=== PATIENT | female | born 1965 | race Hispanic/Latino ===

== ENCOUNTER 2020-01-23 00:07 | Emergency (ER) | payer OTHER ==
[2020-01-23] MEDS ORDERED: NA CHLORIDE 0.9% 1,000 ML ONE (00:54)
[2020-01-23] MEDS ORDERED: CLINDAMYCIN 900MG/D5W 900 MG/50 ML IVPB IV ONE (00:54)
[2020-01-23] MEDS ORDERED: MORPHINE 4 MG/ML SYR ONE (00:54)
[2020-01-23] MEDS ORDERED: ONDANSETRON 4 MG/2 ML VIAL ONE (00:54)
[2020-01-23 00:58] LABS: Absolute Lymphocytes (CBC) 2.6 K/uL (0.7-4.9); Basophils % 0.5 % (0-1.3); Hematocrit 40.6 % (36.0-45.0); Lymphocytes % 20.9 % (15.3-44.8); MPV 8.6 fL (7.6-11.3)
[2020-01-23 01:17] LABS: Potassium 3.5 mmol/L (3.5-5.1)
[2020-01-23] MEDS ORDERED: MEPERIDINE HCL 50 MG/ML ONE (01:30)
--- NOTE | 2020-01-23 01:35 | EDPHYS ---
Physician Documentation [facility] Name: Bay Carbajal Age: 54 yrs Sex: Female : 1965 Arrival Date: 01/23/2020 Time: 00:10 Bed 7 Private MD: ED Physician Foreign Espinoza HPI: 01/22 00:37 This 54 yrs old Female presents to ER via Ambulatory with complaints of pkl Swollen Jaw. 00:37 The patient presents with swelling, gum. Onset: The symptoms/episode began/occurred 3 pkl day(s) ago. Patient said she developed swelling of her right jaw after bridge came out while eating. Seen by Dentist and prescribed Azithromycin without improvement. Has appointment with oral surgeon on 03/03/20.. MAGISTRATE JUDGE: 00:23 LMP N/A - Hysterectomy lp1 Historical: - Allergies: 00:22 No Known Allergies; lp1 - Home Meds: 00:22 None [Active]; lp1 - PMHx: 00:22 None; lp1 - PSHx: 00:22 wrist surgery; Cholecystectomy; Hysterectomy; lp1 - Immunization history:: Adult Immunizations up to date. - Social history:: Smoking status: Patient denies any tobacco usage or history of. ROS: 00:37 Eyes: Negative for injury, pain, redness, and discharge. pkl 00:37 ENT: Positive for dental pain. 00:37 Neck: Negative for stiffness. 00:37 Cardiovascular: Negative for chest pain. 00:37 Respiratory: Negative for cough, shortness of breath. 00:37 Abdomen/GI: Negative for abdominal pain, nausea, vomiting, and diarrhea. 00:37 Back: Negative for acute changes. 00:37 : Negative for urinary symptoms. 00:37 MS/extremity: Negative for acute changes. 00:37 Skin: Negative for rash. 00:37 Neuro: Negative for altered mental status. Exam: 00:37 Eyes: Pupils equal round and reactive to light, extra-ocular motions intact. Lids and pkl lashes normal. Conjunctiva and sclera are non-icteric and not injected. Cornea within normal limits. Periorbital areas with no swelling, redness, or edema. 00:37 Head/face: Noted is swelling, that is mild, of the right jaw. 00:37 ENT: Dental exam: gum swelling, that is mild, specifically in the right jaw. 00:37 Neck: Exam negative for nuchal rigidity. 00:37 Chest/axilla: Exam negative for acute changes. 00:37 Cardiovascular: Rate: tachycardic, actual rate is 102 bpm, Rhythm: regular. 00:37 Respiratory: the patient does not display signs of respiratory distress, Respirations: normal, Breath sounds: are clear throughout. 00:37 Abdomen/GI: Exam negative for acute changes. 00:37 Back: Exam negative for acute changes. 00:37 : Exam negative for acute changes. 00:37 Musculoskeletal/extremity: Exam is negative for acute changes. 00:37 Skin: Exam negative for rash. 00:37 Neuro: Orientation: is normal, Mentation: is normal, Cranial nerves: grossly normal, Motor: is normal. Vital Signs: 00:20 BP 172 / 92; Pulse 102; Resp 18; Temp 98(O); Pulse Ox 97% on R/A; Weight 72.57 kg (R); lp1 Height 5 ft. 0 in. (152.40 cm); Pain 10/10; 00:55 BP 141 / 86; Pulse 99; Resp 18; Pulse Ox 97% on R/A; mg2 00:20 Body Mass Index 31.25 (72.57 kg, 152.40 cm) lp1 MDM: 00:26 Patient medically screened. pkl 01:34 Data reviewed: vital signs, nurses notes, lab test result(s). pkl 06 00:36 Order name: CBC with Diff; Complete Time: 01:18 pkl 06 00:36 Order name: Chem 7; Complete Time: 01:18 pkl Administered Medications: 00:53 Drug: NS 0.9% 500 ml Route: IV; Rate: bolus; Site: right forearm; mg2 01:44 Follow up: Response: No adverse reaction; IV Status: Completed infusion; IV Intake: mg2 500ml 00:53 Drug: morphine 4 mg Route: IVP; Site: right forearm; mg2 01:44 Follow up: Response: No adverse reaction; Marked relief of symptoms; RASS: Alert and mg2 Calm (0) 00:53 Drug: Zofran (Ondansetron) 4 mg Route: IVP; Site: right forearm; mg2 01:44 Follow up: Response: No adverse reaction mg2 00:53 Drug: Clindamycin 900 mg Route: IVPB; Infused Over: 30 mins; Site: right forearm; mg2 01:44 Follow up: Response: No adverse reaction; IV Status: Completed infusion mg2 01:22 Drug: Demerol 50 mg Route: IVP; Site: right forearm; mg2 01:44 Follow up: Response: No adverse reaction; Marked relief of symptoms mg2 Disposition: 01/23/20 01:35 Discharged to Home. Impression: Dental abscess. Cellulitis right jaw. - Condition is Stable. - Prescriptions for Ultram 50 mg Oral Tablet - take 1 tablet by ORAL route every 8 hours As needed; 20 tablet. Clindamycin HCl 150 mg Oral Capsule - take 1 capsule by ORAL route every 6 hours for 7 days; 28 capsule. - Medication Reconciliation Form, Thank You Letter, Antibiotic Education, Prescription Opioid Use form. - Follow up: Private Physician; When: 2 - 3 days; Reason: Re-evaluation by your physician. - Problem is new. - Symptoms are unchanged. Signatures: Dispatcher [employer] EDMS Foreign Espinoza MD MD pkl Anna Culver RN RN lp1 Danielito Cee RN RN mg2 Corrections: (The following items were deleted from the chart) 01:45 01:35 01/23/2020 01:35 Discharged to Home. Impression: Dental abscess. Cellulitis right mg2 jaw. Condition is Stable. Forms are Medication Reconciliation Form, Thank You Letter, Antibiotic Education, Prescription Opioid Use. Follow up: Private Physician; When: 2 - 3 days; Reason: Re-evaluation by your physician. Problem is new. Symptoms are unchanged. pkl
--- NOTE | 2020-01-23 01:35 | ER ---
Nurse's Notes [facility] Name: Bay Carbajal Age: 54 yrs Sex: Female : 1965 Arrival Date: 01/23/2020 Time: 00:10 Bed 7 Private MD: Diagnosis: Dental abscess. Cellulitis right jaw Presentation: 01/22 00:20 Chief complaint: Patient states: Swelling to right lower jaw x 3 days after bridge came lp1 out while eating; Seen by Dentist 3 days ago and prescribed Azithromycin and finished prescription; States continued pain and swelling to site; Appt to see oral surgeon 03/03/20. Coronavirus screen: Proceed with normal triage. Ebola Screen: No symptoms or risks identified at this time. Initial Sepsis Screen: Does the patient meet any 2 criteria? No. Patient's initial sepsis screen is negative. Does the patient have a suspected source of infection? No. Patient's initial sepsis screen is negative. Risk Assessment: Do you want to hurt yourself or someone else? Patient reports no desire to harm self or others. Onset of symptoms was January 23, 2020. 00:20 Method Of Arrival: Ambulatory lp1 00:20 Acuity: BERT 3 lp1 SPORT INTERN: 00:23 LMP N/A - Hysterectomy lp1 Historical: - Allergies: 00:22 No Known Allergies; lp1 - Home Meds: 00:22 None [Active]; lp1 - PMHx: 00:22 None; lp1 - PSHx: 00:22 wrist surgery; Cholecystectomy; Hysterectomy; lp1 - Immunization history:: Adult Immunizations up to date. - Social history:: Smoking status: Patient denies any tobacco usage or history of. Screenin:23 Abuse screen: Denies threats or abuse. Denies injuries from another. Nutritional lp1 screening: No deficits noted. Tuberculosis screening: No symptoms or risk factors identified. Fall Risk None identified. Assessment: 00:54 General: Appears in no apparent distress. comfortable, Behavior is calm, cooperative. mg2 Pain: Complains of pain in tooth. Neuro: Level of Consciousness is awake, alert, obeys commands, Oriented to person, place, time, situation. Cardiovascular: Capillary refill < 3 seconds Patient's skin is warm and dry. Respiratory: Airway is patent Respiratory effort is even, unlabored, Respiratory pattern is regular, symmetrical. GI: No signs and/or symptoms were reported involving the gastrointestinal system. : No signs and/or symptoms were reported regarding the genitourinary system. EENT: Reports toothache. Derm: Skin is intact, is healthy with good turgor, Skin is pink, warm \T\ dry. normal. Musculoskeletal: Circulation, motion, and sensation intact. Capillary refill < 3 seconds. Vital Signs: 00:20 BP 172 / 92; Pulse 102; Resp 18; Temp 98(O); Pulse Ox 97% on R/A; Weight 72.57 kg (R); lp1 Height 5 ft. 0 in. (152.40 cm); Pain 10/10; 00:55 BP 141 / 86; Pulse 99; Resp 18; Pulse Ox 97% on R/A; mg2 00:20 Body Mass Index 31.25 (72.57 kg, 152.40 cm) lp1 ED Course: 00:10 Patient arrived in ED. cl3 00:19 Danielito Cee, LYDIA is Primary Nurse. mg2 00:22 Triage completed. lp1 00:22 Arm band placed on right wrist. lp1 00:26 Foreign Espinoza MD is Attending Physician. pkl 00:40 Inserted saline lock: 20 gauge in right forearm, using aseptic technique. Blood mg2 collected. 00:55 Patient has correct armband on for positive identification. Pulse ox on. NIBP on. mg2 00:55 No provider procedures requiring assistance completed. mg2 01:45 IV discontinued, intact, bleeding controlled, No redness/swelling at site. Pressure mg2 dressing applied. Administered Medications: 00:53 Drug: NS 0.9% 500 ml Route: IV; Rate: bolus; Site: right forearm; mg2 01:44 Follow up: Response: No adverse reaction; IV Status: Completed infusion; IV Intake: mg2 500ml 00:53 Drug: morphine 4 mg Route: IVP; Site: right forearm; mg2 01:44 Follow up: Response: No adverse reaction; Marked relief of symptoms; RASS: Alert and mg2 Calm (0) 00:53 Drug: Zofran (Ondansetron) 4 mg Route: IVP; Site: right forearm; mg2 01:44 Follow up: Response: No adverse reaction mg2 00:53 Drug: Clindamycin 900 mg Route: IVPB; Infused Over: 30 mins; Site: right forearm; mg2 01:44 Follow up: Response: No adverse reaction; IV Status: Completed infusion mg2 01:22 Drug: Demerol 50 mg Route: IVP; Site: right forearm; mg2 :44 Follow up: Response: No adverse reaction; Marked relief of symptoms mg2 Intake: :44 IV: 500ml; Total: 500ml. mg2 Outcome: 01:35 Discharge ordered by . [email or web address] 01:45 Discharged to home via wheelchair. mg2 01:45 Condition: stable 01:45 Discharge instructions given to patient, Instructed on discharge instructions, follow up and referral plans. medication usage, Demonstrated understanding of instructions, follow-up care, Prescriptions given X 2. 01:45 Patient left the ED. mg2 Signatures: Foreign Espinoza MD MD pkl Anna Culver RN RN lp1 Danielito Cee RN RN mg2 Josefa Estes cl3 Corrections: (The following items were deleted from the chart) 01:45 01:45 Discharge instructions given to patient, Instructed on discharge instructions, mg2 follow up and referral plans. medication usage, Demonstrated understanding of instructions, follow-up care, Prescriptions given X mg2
[2020-01-23 01:58] VITALS: TEMP 98; O2SAT 97
[2020-01-23 02:01] VITALS: BP 141/86
== END 2020-01-23 01:45 | disposition home or self-care (01) ==
LOC: ER 00:07
DX: L03.211 Cellulitis of face (principal)
CPT/HCPCS: 96365; 85025; 80048; 36415; 96375; 99284; J2175; J7030; J2405

== ENCOUNTER 2025-01-06 20:51 | Emergency (ER) | payer OTHER ==
--- OUTSIDE RECORDS SUMMARY | 2025-01-06 20:53 | XMS REPORT | Continuity of Care Document ---
Author Name Unknown Address [address] [place] [address] [address] [place] [address] [facility] [place] Address [address] [facility] [address] [place] [address] Care Team Providers Care General Manager Road Production Name Role Phone PCP, NO Primary Care Physician Unavailab le ELY LANDAVERDE Attending Clinician Unavailable Payers Payer Name Policy Type Policy Number Effective Date Expirati on Date Source [employer] [id number] 2017 00:00:00 Encounters Start Date/Time End Date/Time Encounter Type Admission Type Attending Clinicians Care Facility Care Department Encounter ID Source 2024-09-03 11:45:18 2024-09-03 11:45:18 Outpatient ELY LANDAVERDE [facility] [id number] [facility]
--- NOTE | 2025-01-06 22:55 | RAD REPORT ---
EXAM: Chest Single View HISTORY: 59 years Female PAIN COMPARISON: None. FINDINGS: LUNGS/PLEURA: The lungs are clear. No pleural effusions or pneumothorax. No pulmonary edema. CARDIAC/MEDIASTINUM: The cardiac silhouette is within normal limits. UPPER ABDOMEN: No significant abnormality. BONES: No acute abnormality. LINES/TUBES/OTHER: N/A IMPRESSION: No evidence of acute cardiopulmonary disease.
[2025-01-06] MEDS ORDERED: cloNIDine HCL 0.1 MG TAB ONE (23:08)
[2025-01-06 23:55] LABS: Absolute Lymphocytes (CBC) 2.8 K/uL (0.7-4.9); Absolute Monocytes 0.4 K/uL (0.1-1.3); Absolute Neutrophil 3.6 K/uL (1.8-8.0); Basophils % 0.5 % (0-1.3); Eosinophils % 0.5 % (0-4.4); Hematocrit 40.6 % (36.0-45.0); Hemoglobin 14.6 g/dL (12.0-15.0); Lymphocytes % 40.1 % (15.3-44.8); MCH 31.3 pg (27.0-35.0); MCHC 36.1 g/dL (32.0-36.0); MCV 86.9 fL (80-100); Monocytes % 5.9 % (3.3-12.3); Nucleated Red Blood Cells % 0.1 % (0-0); Platelets 265 thou/uL (152-406); RBC Red Blood Cell Count 4.67 M/uL (3.86-4.86); Red Cell Distribution Width 13.7 % (12.1-15.2)
[2025-01-06 23:56] LABS: Anion Gap 7.8 mEq/L (5.0-15.0); Magnesium 1.9 mg/dL (1.6-2.4); Potassium 2.8 mEq/L (3.5-5.1); Troponin High Sensitivity 5.3 pg/mL (<58.9)
--- NOTE | 2025-01-07 00:10 | EDPHYS ---
Physician Documentation [facility] Name: Bay Carbajal Age: 59 yrs Sex: Female : 1965 Arrival Date: 01/06/2025 Time: 20:51 Bed 5 Private MD: ED Physician Rohit Read HPI: 01/06 23:48 This 59 yrs old Female presents to ER via Ambulatory with complaints of High kb Blood Pressure. 23:48 Patient is a 59-year-old female who presents for high blood pressure. States her blood kb pressure has been high all day, 180/109 just prior to arrival. States she has been under more stress than normal and she believes that is the cause of her high blood pressure. States she takes hydrochlorothiazide for her blood pressure. States she can normally feel when its high she starts getting a headache that is what made her check her blood pressure today.. Historical: - Allergies: 21:35 No Known Allergies; al5 - PMHx: 21:35 Hypertensive disorder; al5 - PSHx: 21:35 Total abdominal hysterectomy; Cholecystectomy; al5 - Immunization history:: Adult Immunizations up to date. - Infectious Disease History:: Denies. - Social history:: Smoking status: Patient denies any tobacco usage or history of. ROS: 23:17 Constitutional: As per HPI kb Exam: 23:17 Constitutional: This is a well developed, well nourished patient who is awake, alert, kb and in no acute distress. Head/Face: Normocephalic, atraumatic. ENT: Moist Mucous membranes Cardiovascular: Regular rate Respiratory: Respirations even and unlabored. No increased work of breathing. Talking in full sentences Skin: Warm, dry with normal turgor. Normal color. MS/ Extremity: Pulses equal, no cyanosis. Neurovascular intact. Full, normal range of motion. Neuro: Awake and alert, GCS 15, oriented to person, place, time, and situation. 23:17 ECG was reviewed by the Attending Physician. Vital Signs: 21:34 BP 154 / 99; Pulse 87; Resp 18; Temp 97.9; Pulse Ox 98% on R/A; Weight 58.97 kg; Height al5 5 ft. 0 in. ; 23:03 BP 158 / 91; Pulse 84; Resp 18; Pulse Ox 99% on R/A; kd3 05/22 00:09 BP 116 / 90; Pulse 80; Resp 19; Pulse Ox 98% on R/A; kd3 01/06 21:34 Body Mass Index 25.39 (58.97 kg, 152.4 cm) al5 MDM: 01/06 21:03 Medical Screening Exam initiated 23:49 Differential diagnosis: hypertensive crisis, Malignant HTN. Data reviewed: vital signs, nurses notes. 01/07 00:07 I considered the following discharge prescriptions or medication management in the emergency department I discussed and recommended Over The Counter medications, discussed potassium supplement due to hypokalemia and use of HCTZ. . Counseling: I had a detailed discussion with the patient and/or guardian regarding the historical points, exam findings, and any diagnostic results supporting the discharge/admit diagnosis, lab results, radiology results, the need for outpatient follow up, a family practitioner, to return to the emergency department if symptoms worsen or persist or if there are any questions or concerns that arise at home. 01/06 21: Order name: Basic Metabolic Panel; Complete Time: 00:03 kb 01/06 Order name: CBC with Diff; Complete Time: 00:03 kb 01/06 Order name: Magnesium; Complete Time: 00:03 kb 01/0623 Order name: Troponin HS; Complete Time: 00:03 kb 01/06 Order name: XRAY Chest (1 view); Complete Time: 22:57 kb 01/06 Order name: Cardiac monitoring; Complete Time: 23:02 kb 01/06 Order name: EKG - Nurse/Tech; Complete Time: 23:02 kb 01/06 Order name: IV Saline Lock; Complete Time: 23:02 kb 01/06 Order name: Labs collected and sent; Complete Time: 23:02 kb 01/06 Order name: O2 Per Protocol; Complete Time: 23:03 kb 01/06 Order name: O2 Sat Monitoring; Complete Time: 23:03 kb EC/21 23: Rate is 80 beats/min. Rhythm is regular. QRS [place] is Normal. PA interval is normal at kb 128 msec. QRS interval is normal at 82 msec. QT interval is normal at 431 msec. Administered Medications: 23:10 Drug: cloNIDine PO 0.1 mg PO once Route: PO; kd3 01/07 00:19 Drug: Potassium PO Effervescent Tablet 50 mEq PO once; dissolve in 4 ounces of water or kd3 juice Route: PO; Disposition: 01:55 Co-signature as Attending Physician, Rohit Read MD I reviewed the patient's care rn provided by the Advanced Practice Provider and agree with the diagnosis and treatment plan. Disposition Summary: 01/07/25 00:09 Discharge Ordered Notes: Location: Home kb Condition: Stable kb Diagnosis - Essential (primary) hypertension kb - Hypokalemia kb Followup: kb - With: Emergency Department - When: As needed - Reason: Worsening of condition Followup: kb - With: Private Physician - When: 2 - 3 days - Reason: Recheck today's complaints, Continuance of care, Re-evaluation by your physician Discharge Instructions: - Discharge Summary Sheet kb - Hypertension, Adult, [id number] kb - Managing Your Hypertension kb Forms: - Medication Reconciliation Form kb - Antibiotic Education kb - Prescription Opioid Use kb - Patient Portal Instructions kb - Leadership Thank You Letter kb Signatures: Dispatcher [employer] EDMS Lizbeth Chino, COOLING SYSTEM OPERATOR-C COOLING SYSTEM OPERATOR-Ckb Rohit Read MD MD rn Doucette, Kyli, RN RN kd3 Ness Springer RN RN al5 Corrections: (The following items were deleted from the chart) 01/06 21:23 21:23 BASIC METABOLIC PANEL+C.LAB.BRZ ordered. EDMS EDMS 21:23 21:23 CBC+H.LAB.BRZ ordered. EDMS EDMS 21:23 21:23 MAGNESIUM+C.LAB.BRZ ordered. EDMS EDMS 21:23 21:23 Troponin High Sensitivity+C.LAB.BRZ ordered. EDMS EDMS 21:23 21:23 Chest Single View+RAD.RAD.BRZ ordered. EDMS EDMS
--- NOTE | 2025-01-07 00:10 | ER ---
Nurse's Notes [facility] Name: Bay Carbajal Age: 59 yrs Sex: Female : 1965 Arrival Date: 01/06/2025 Time: 20:51 Bed 5 Private MD: Diagnosis: Essential (primary) hypertension;Hypokalemia Presentation: 01/06 21:34 Chief complaint: Patient states: c/o high blood pressure, headache, R shoulder blade al5 pain, and nausea starting today. Coronavirus screen: At this time, the client does not indicate any symptoms associated with coronavirus-19. Ebola Screen: No symptoms or risks identified at this time. Initial Sepsis Screen: Does the patient meet any 2 criteria? No. Patient's initial sepsis screen is negative. Does the patient have a suspected source of infection? No. Patient's initial sepsis screen is negative. Risk Assessment: Do you want to hurt yourself or someone else? Patient reports no desire to harm self or others. Onset of symptoms was January 06, 2025. 21:34 Method Of Arrival: Ambulatory al5 21:34 Acuity: BERT 3 al5 Triage Assessment: 21:36 General: Appears in no apparent distress. comfortable, Behavior is calm, cooperative. al5 Pain: Complains of pain in head. EENT: No signs and/or symptoms were reported regarding the EENT system. Neuro: Level of Consciousness is awake, alert, obeys commands, Oriented to person, place, time, situation. Cardiovascular: Capillary refill < 3 seconds Patient's skin is warm and dry. Respiratory: Airway is patent Respiratory effort is even, unlabored, Respiratory pattern is regular, symmetrical. GI: No signs and/or symptoms were reported involving the gastrointestinal system. : No signs and/or symptoms were reported regarding the genitourinary system. Derm: Skin is intact, is healthy with good turgor, Skin is pink, warm \T\ dry. normal. Musculoskeletal: No signs and/or symptoms reported regarding the musculoskeletal system. Historical: - Allergies: 21:35 No Known Allergies; al5 - PMHx: 21:35 Hypertensive disorder; al5 - PSHx: 21:35 Total abdominal hysterectomy; Cholecystectomy; al5 - Immunization history:: Adult Immunizations up to date. - Infectious Disease History:: Denies. - Social history:: Smoking status: Patient denies any tobacco usage or history of. Screenin:37 [facility] ED Fall Risk Assessment (Adult) History of falling in the last 3 months, al5 including since admission No falls in past 3 months (0 pts) Confusion or Disorientation No (0 pts) Intoxicated or Sedated No (0 pts) Impaired Gait No (0 pts) Mobility Assist Device Used No (0 pt) Altered Elimination No (0 pt) Score/Fall Risk Level 0 - 2 = Low Risk Oriented to surroundings, Maintained a safe environment, Hourly rounding (assess needs \T\ fall precautionary measures) done. Abuse screen: Denies threats or abuse. Denies injuries from another. Nutritional screening: No deficits noted. Tuberculosis screening: No symptoms or risk factors identified. Assessment: 21:37 Reassessment: see triage assessment. al5 Vital Signs: 21:34 BP 154 / 99; Pulse 87; Resp 18; Temp 97.9; Pulse Ox 98% on R/A; Weight 58.97 kg; Height al5 5 ft. 0 in. ; 23:03 BP 158 / 91; Pulse 84; Resp 18; Pulse Ox 99% on R/A; kd3 01/07 00:09 BP 116 / 90; Pulse 80; Resp 19; Pulse Ox 98% on R/A; kd3 01/06 21:34 Body Mass Index 25.39 (58.97 kg, 152.4 cm) al5 ED Course: 01/06 20:53 Patient arrived in ED. jj6 21:02 Lizbeth Chino [facility]-C [facility] kb 21:03 Rohit Read MD is Attending Physician. kb 21:35 Triage completed. al5 21:36 Arm band placed on right wrist. Patient placed in the treatment room, in view of staff al5 members, on pulse oximetry, Patient notified of wait time. 21:37 Patient has correct armband on for positive identification. Provided Education on: plan al5 of care. 21:37 No provider procedures requiring assistance completed. al5 22:42 Evelin Ferreira, RN is Primary Nurse. kd3 22:51 XRAY Chest (1 view) In Process Unspecified. EDMS 23:03 Basic Metabolic Panel Sent. kd3 23:03 CBC with Diff Sent. kd3 23:03 Magnesium Sent. kd3 23:03 Troponin HS Sent. kd3 23:03 Inserted saline lock: 22 gauge in left antecubital area, using aseptic technique. Blood kd3 collected. Flushed with 10 mL NS. 01/07 00:18 IV discontinued, intact, bleeding controlled, No redness/swelling at site. Pressure kd3 dressing applied. Administered Medications: 01/06 23:10 Drug: cloNIDine PO 0.1 mg PO once Route: PO; kd3 01/07 00:19 Drug: Potassium PO Effervescent Tablet 50 mEq PO once; dissolve in 4 ounces of water or kd3 juice Route: PO; Medication: 01/06 21:37 VIS not applicable for this client. al5 Outcome: 01/07 00:09 Discharge ordered by . shantell 00:10 Condition: stable kd3 00:18 Discharged to home ambulatory, kd3 00:18 Discharge instructions given to patient, 00:18 Instructed on discharge instructions, Demonstrated understanding of instructions, follow-up care, 00:25 Patient left the ED. kd3 Signatures: Dispatcher [employer] EDMS Lizbeth Chino, OCTAVIO-C PIN MAKER-Zeny Rueda [id number] Evelin Ferreira, RN RN kd3 Ness Springer RN RN al5
[2025-01-07] MEDS ORDERED: POTASSIUM 25 MEQ EFFERV TAB ONE (00:12)
[2025-01-07 01:02] VITALS: TEMP 97.9
[2025-01-07 01:04] VITALS: BP 116/90; O2SAT 98
== END 2025-01-07 00:25 | disposition home or self-care (01) ==
LOC: ER 20:51
DX: I10 Essential (primary) hypertension (principal); E87.6 Hypokalemia
CPT/HCPCS: 36415; 71045; 80048; 83735; 84484; 85025; 93005; 99284